=== PATIENT | female | born 1960 | race Caucasian/White ===

== ENCOUNTER 2020-07-01 11:03 | Emergency (ER) | payer OTHER ==
[~2020-07-01] VITALS: Ht 167.6 cm; Wt 64.7 kg
[2020-07-01 11:10] VITALS: BP 130/71
[2020-07-01] MEDS ORDERED: CEPH-264 PO (11:47)
--- NOTE | 2020-07-01 11:47 | PHYS DOC ---
Past History Past Medical History: GERD, High Cholesterol Past Surgical History: Hysterectomy, Other Additional Past Surgical Histo: BILATERAL ROTATOR CUFF, CERVICAL SPINE FUSION, BREAST AUGMENTATION CORRECTI Alcohol Use: Rarely General Adult EDM: Chief Complaint: LACERATION/AVULSION HPI: HPI: 59-year-old female presents with left thumb laceration. The patient was using hedge trimmers and then they stab down into the end of her thumb. She had bleeding but was able to control with direct pressure. There was some disruption of the nail, but this allowed the bruising underneath to evacuate some blood. She denies any other injuries. She is worried about secondary infection due to the dirty trimmers. Her tetanus is also out of date. Review of Systems: Review of Systems: Constitutional: Denies fever or chills Eyes: Denies change in visual acuity HENT: Denies nasal congestion or sore throat Respiratory: Denies cough or shortness of breath Cardiovascular: Denies chest pain or edema GI: Denies abdominal pain, nausea, vomiting, bloody stools or diarrhea : Denies dysuria Musculoskeletal: Denies back pain or joint pain Integument: laceration left thumb Neurologic: Denies headache, focal weakness or sensory changes Endocrine: Denies polyuria or polydipsia Lymphatic: Denies swollen glands Psychiatric: Denies depression or anxiety Allergies: Allergies: Allergies Coded Allergies Type Severity Reaction Last Updated Verified No Known Drug Allergies 07/01/20 No Physical Exam: PE: Constitutional: Well developed, well nourished, no acute distress, non-toxic appearance. [] HENT: Normocephalic, atraumatic, bilateral external ears normal, oropharynx moist, no oral exudates, nose normal. [] Eyes: PERRLA, EOMI, conjunctiva normal, no discharge. [] Neck: Normal range of motion, no tenderness, supple, no stridor. [] Cardiovascular:Heart rate regular rhythm, no murmur [] Lungs & Thorax: Bilateral breath sounds clear to auscultation [] Abdomen: Bowel sounds normal, soft, no tenderness, no masses, no pulsatile masses. [] Skin: 1.5 cm linear laceration of the left thumb. [] Back: No tenderness, no CVA tenderness. [] Extremities: No tenderness, no cyanosis, no clubbing, ROM intact, no edema. [] Neurologic: Alert and oriented X 3, normal motor function, normal sensory function, no focal deficits noted. [] Psychologic: Affect normal, judgement normal, mood normal. [] Current Patient Data: Vital Signs: Vital Signs Date Time Temp Pulse Resp B/P (MAP) Pulse Ox O2 Delivery O2 Flow Rate FiO2 07/01/20 11:10 97.5 68 20 130/71 (90) 98 Room Air EKG: EKG: [] Radiology/Procedures: Radiology/Procedures: [] Heart Score: Risk Factors: Risk Factors: DM, Current or recent (<one month) smoker, HTN, HLP, family history of CAD, obesity. Risk Scores: Score 0 - 3: 2.5% MACE over next 6 weeks - Discharge Home Score 4 - 6: 20.3% MACE over next 6 weeks - Admit for Clinical Observation Score 7 - 10: 72.7% MACE over next 6 weeks - Early Invasive Strategies Course & Med Decision Making: Course & Med Decision Making Pertinent Labs and Imaging studies reviewed. (See chart for details) I repaired the patient's wound with Dermabond. Due to the deep nature of the wound, I will cover her with Keflex and update her tetanus in the ER. She is stable for discharge at this time. [] Dragon Disclaimer: Dragon Disclaimer: This electronic medical record was generated, in whole or in part, using a voice recognition dictation system. Laceration Repair Lac Repair Indication: [] 1.5 cm linear laceration of the left thumb Procedure: The patient gave me verbal permission for tissue adhesive repair of her thumb laceration. The area was thoroughly cleaned with normal saline under pressure. No foreign bodies were found. No anesthesia was used. 2 layers of skin adhesive were placed over the wound. There was good skin approximation. Bleeding was controlled. Total repaired wound length: 1.5 cm. Other Items: None The patient tolerated the procedure well. Complications: None. Departure Departure: Impression: Primary Impression: Laceration of left thumb Disposition: 01 DC HOME SELF CARE/HOMELESS Condition: IMPROVED Referrals: [facility]CP[facility] (PCP) Patient Instructions: Tissue Adhesive Wound Care, [id number] Scripts Cephalexin (KEFLEX) 500 Mg Capsule 1 CAP PO TID for infection prophylaxis for 7 Days, #21 CAP 0 Refills Prov: BEATRIZ QUINTANA DO 07/01/20 BEATRIZ QUINTANA DO Jul 01, 2020 11:47
[2020-07-01] MEDS ORDERED: DIPH,PERTUSS(ACELL),TET VAC/PF 0.5 ML SYRINGE. VAX IM ONE ×2 (11:52→12:00)
== END 2020-07-01 11:58 | disposition home or self-care (01) ==
LOC: ER 11:03
DX: S61.012A Laceration without foreign body of left thumb without damage to nail, initial encounter (principal); K21.9 Gastro-esophageal reflux disease without esophagitis; E78.00 Pure hypercholesterolemia, unspecified; W29.3XXA Contact with powered garden and outdoor hand tools and machinery, initial encounter; Y93.89 Activity, other specified; Y92.89 Other specified places as the place of occurrence of the external cause; Y99.8 Other external cause status
CPT/HCPCS: 12001; 90471; 90715; 99283